=== PATIENT | male | born 1965 | race Caucasian/White ===

== ENCOUNTER 2016-06-07 15:38 | Emergency (ER) | payer MEDICARE, OTHER ==
[~2016-06-07] VITALS: Ht 175.3 cm; Wt 90.0 kg
[2016-06-07 15:49] VITALS: BP 134/67; PULSE 82; RESP 16; TEMP 98; O2SAT 95
[2016-06-07 15:58] VITALS: RESP 16; O2SAT 96
[2016-06-07 16:00] VITALS: BP 126/66; PULSE 81; RESP 16; O2SAT 98
[2016-06-07] MEDS ORDERED: LORazepam 2 MG/ML VIAL IV PUSH ONE (16:00)
[2016-06-07] MEDS ORDERED: SODIUM CHLORIDE 0.9% FLUSH 5 ML FLUSH IVF PRN (16:00)
[2016-06-07] MEDS ORDERED: HYDR12.57 PO (16:02)
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
[2016-06-07 16:20] LABS: AUTOMATED NEUTROPHIL # 3.3 TH/MM3 (1.8-7.7); BASOPHIL % 0.4 % (0.0-2.0); EOSINOPHIL # 0.1 TH/MM3 (0-0.4); EOSINOPHIL % 1.9 % (0.0-4.0); HEMATOCRIT 42.1 % (39.0-51.0); HEMO FLAGS DIFF FINAL; LYMPH % 38.2 % (9.0-44.0); LYMPHOCYTE # 2.6 TH/MM3 (1.0-4.8); MEAN CELL VOLUME 83.7 FL (80.0-100.0); MEAN CORPUSCULAR HGB CONC 34.6 % (32.0-36.0); MONO % 11.1 % (0.0-8.0); NEUT % 48.4 % (16.0-70.0); PLATELET COUNT 192 TH/MM3 (150-450); RED BLOOD COUNT 5.03 MIL/MM3 (4.50-5.90); RED CELL DISTRIBUTION WIDTH 13.4 % (11.6-17.2); WHITE BLOOD COUNT 6.7 TH/MM3 (4.0-11.0)
[2016-06-07 16:41] LABS: BICARBONATE 27.7 MEQ/L (21.0-32.0); POTASSIUM 4.9 MEQ/L (3.5-5.1)
--- NOTE | 2016-06-07 16:43 | RADRPT ---
EXAM DATE/TIME: 06/07/2016 16:13 [facility] COMPARISON: No previous studies available for comparison. INDICATIONS : Seizure. RADIATION DOSE: 37.78 CTDIvol (mGy) MEDICAL HISTORY : Cerebrovascular disease. Seizures. SURGICAL HISTORY : Craniotomy. ENCOUNTER: Initial ACUITY: 1 day PAIN SCALE: 3/10 LOCATION: cranial TECHNIQUE: Multiple contiguous axial images were obtained of the head. Using automated exposure control and adj ustment of the mA and/or kV according to patient size, radiation dose was kept as low as reasonably a chievable to obtain optimal diagnostic quality images. FINDINGS: No prior studies available for comparison. However, there is a prior left-sided temporal craniotomy w ith encephalomalacia and/or edema in the left temporal lobe. There is a partially calcified extra-axi al mass just to the left of the brainstem measuring up to 3.6 x 2.4 cm and resulting in some compress ion on the brainstem, especially the left cerebral peduncle. The mass extends inferiorly into the yu deja region with mild compression of the itzel as well. No recent infarct. No hydrocephalus. CONCLUSION: Previous left craniotomy with partially calcified extra-axial mass to the left of the brainstem as ab ove resulting in compression of the brainstem especially at the left cerebral peduncle. There is like ly some vasogenic edema in the left basal ganglia as well as some encephalomalacia in the left tempor al lobe. Without prior studies it is difficult to determine if this represents progression or recurre nce of disease, possibly a meningioma. Kyle Mora MD on June 07, 2016 at 16:37 Board Certified Radiologist. This report was verified electronically.
[2016-06-07] MEDS ORDERED: LEVE500 PO (17:09)
[2016-06-07] MEDS ORDERED: levETIRAcetam 1000 MG INJ 100 ML IV ONE (17:15)
--- NOTE | 2016-06-08 14:31 | EKG ---
Date Performed: 06/07/2016 Time Performed: 16:42:55 PTAGE: 51 years EKG: Sinus rhythm RIGHT BUNDLE BRANCH BLOCK ABNORMAL ECG NO PREVIOUS TRACING DOCTOR: Jose Adrian Interpretating Date/Time 06/08/2016 14:28:01
== END 2016-06-07 18:07 | disposition home or self-care (01) ==
LOC: NEPC 15:38
DX: R56.9 Unspecified convulsions (principal); I10 Essential (primary) hypertension; D32.0 Benign neoplasm of cerebral meninges; I45.10 Unspecified right bundle-branch block
CPT/HCPCS: 70450; 80048; 85025; 93005; 96365; 96375; 99284; J1953; J2060